=== PATIENT | female | born 1985 | race African-American/Black ===

== ENCOUNTER → 2020-05-11 | Outpatient (CLI) | payer MEDICAID | END | disposition home or self-care (01) | LOC: LAB 12:10 | PROVIDERS: ATTEND Obstetrics & Gynecology | DX: Z01.812 Encounter for preprocedural laboratory examination (principal); Z20.828 Contact with and (suspected) exposure to other viral communicable diseases | CPT/HCPCS: C9803; U0003 ==

== ENCOUNTER 2020-05-14 06:13 | Inpatient (IN) | payer MEDICAID ==
[~2020-05-14] VITALS: Ht 162.6 cm; Wt 95.3 kg
[2020-05-14] MEDS ORDERED: LACTATED RINGERS 1,000 ML IV SCH (06:59)
[2020-05-14] MEDS ORDERED: METHYLERGONOVINE MALEATE 0.2 MG/ML IM PRN (07:00)
[2020-05-14] MEDS ORDERED: NALOXONE HCL 0.4 MG/ML 1ML VIAL IM PRN (07:00)
[2020-05-14] MEDS ORDERED: MISOPROSTOL 100MCG TABLET VG SCH (07:00)
[2020-05-14] MEDS ORDERED: BUTORPHANOL TARTRATE 2 MG/ML VIAL IV PRN (07:00)
[2020-05-14] MEDS ORDERED: DEXT 5%/LR + PITOCIN 20UNITS/L 1,000 ML IV SCH ×2 (07:12→10:06)
[2020-05-14 07:44] LABS: CLARITY URINE CLEAR (CLEAR); COLOR URINE YELLOW (YELLOW); KETONES URINE NEGATIVE (NEGATIVE); LEUKOCYTE ESTERASE URINE NEGATIVE (NEGATIVE); NITRITE URINE NEGATIVE (NEGATIVE); OCCULT BLOOD URINE TRACE (NEGATIVE); PH URINE 6.5 (4.5-8.0); PROTEIN URINE NEGATIVE (NEGATIVE); SPECIFIC GRAVITY URINE 1.007 (1.005-1.030)
[2020-05-14 07:47] LABS: BASOPHILS % 0.4 % (0.0-2.0); EOSINOPHILS % 1.1 % (0.0-5.0); HEMATOCRIT. 29.3 % (36.0-48.0); HEMOGLOBIN. 9.5 g/dL (12.0-16.0); MEAN CORPUSCULAR HEMOGLOBIN 25.8 pg (28.0-32.0); MEAN CORPUSCULAR VOLUME 79.3 fL (81.0-99.0); MEAN PLATELET VOLUME 7.1 fl (7.4-10.4); MONOCYTES % 7.7 % (2.0-8.0); NEUTROPHILS % 66.8 % (40.0-76.0); PLATELET 339 x1000/uL (130-400); RED CELL DISTRIBUTION WIDTH 17.5 % (11.6-14.6)
[2020-05-14 07:54] LABS: PROTHROMBIN TIME 10.4 sec (9.6-11.0)
[2020-05-14 08:02] LABS: *AMPHETAMINES SCREEN URINE NEGATIVE (NEGATIVE)
[2020-05-14 08:03] LABS: *BARBITURATES SCREEN URINE NEGATIVE (NEGATIVE); *BENZODIAZEPINES SCREEN URINE NEGATIVE (NEGATIVE); *COCAINE SCREEN URINE NEGATIVE (NEGATIVE); METHADONE URINE SCREEN NEGATIVE (NEGATIVE); OPIATES URINE SCREEN NEGATIVE (NEGATIVE)
[2020-05-14 08:04] LABS: PHENCYCLIDINE URINE SCREEN NEGATIVE (NEGATIVE)
[2020-05-14 08:19] LABS: CANNABINOID URINE SCREEN PRESUMTIVE POSITIVE (NEGATIVE); HEPATITIS B SURFACE ANTIGEN NEGATIVE
[2020-05-14] MEDS ORDERED: LABETALOL 5MG/ML SYR 20 MG/4 ML SYRINGE IV PRN (09:30)
[2020-05-14] MEDS ORDERED: BUTORPHANOL TARTRATE 2 MG/ML VIAL IM PRN (09:30)
[2020-05-14] MEDS ORDERED: MEPERIDINE HCL/PF 25MG/ML CPJ IV PRN (09:30)
[2020-05-14] MEDS ORDERED: KETOROLAC 30MG/ML VIAL IV PRN (09:30)
[2020-05-14] MEDS ORDERED: ONDANSETRON HCL 4MG/2ML INJ IV PRN ×2 (09:30→10:15)
[2020-05-14] MEDS ORDERED: DEXT 5%/LACTATED RINGERS 1,000 ML IV SCH (10:06)
[2020-05-14] MEDS ORDERED: LANOLIN OINT 7GM TUBE TOP PRN (10:15)
[2020-05-14] MEDS ORDERED: RHO(D) IMMUNE GLOBULIN 300 MCG/SYR IM PRN (10:15)
[2020-05-14] MEDS ORDERED: HYDROCODONE/ACETAMINOPHEN 5/325MG TABLET PO PRN (10:15)
[2020-05-14] MEDS ORDERED: IBUPROFEN 400MG TABLET PO PRN (10:15)
[2020-05-14] MEDS: ACETAMINOPHEN WITH CODEINE 300/30MG TABLET PO PRN (11:02)
[2020-05-14] MEDS: HYDROMORPHONE HCL/PF 2MG/ML CPJ IV PRN ×2 (11:48→12:07)
[2020-05-14 13:00] VITALS: BP_SYST 101; BP_SYST 94; BP_DIAS 40; BP_DIAS 47
[2020-05-14 13:30] VITALS: BP 101/46
[2020-05-14 13:45] VITALS: BP 104/44
[2020-05-14] MEDS: DIPHENHYDRAMINE 50MG/ML VIAL IV PRN (18:01)
[2020-05-14 20:30] VITALS: BP 100/49
[2020-05-14] MEDS ORDERED: DIPHENHYDRAMINE 25MG CAPSULE PO PRN (21:00)
[2020-05-14] MEDS ORDERED: DOCUSATE SODIUM 100MG CAPSULE PO SCH (21:00)
[2020-05-15] VITALS: BP 110/74
[2020-05-15] MEDS: DIPHENHYDRAMINE 50MG/ML VIAL IV PRN (02:53)
[2020-05-15 04:00] VITALS: BP 98/48
[2020-05-15 07:28] LABS: BASOPHILS % 0.3 % (0.0-2.0); EOSINOPHILS % 1.7 % (0.0-5.0); HEMATOCRIT. 26.4 % (36.0-48.0); HEMOGLOBIN. 8.6 g/dL (12.0-16.0); LYMPHOCYTES % 19.2 % (20.0-50.0); MEAN CORPUSCULAR HEMOGLOBIN 25.8 pg (28.0-32.0); MEAN CORPUSCULAR VOLUME 79.6 fL (81.0-99.0); MEAN PLATELET VOLUME 6.7 fl (7.4-10.4); MONOCYTES % 8.5 % (2.0-8.0); NEUTROPHILS % 70.3 % (40.0-76.0); PLATELET 290 x1000/uL (130-400); RED BLOOD CELL COUNT 3.32 mill/uL (4.2-5.4); RED CELL DISTRIBUTION WIDTH 17.1 % (11.6-14.6)
[2020-05-15 08:00] VITALS: BP 100/54
[2020-05-15] MEDS: IBUPROFEN 800MG TABLET PO PRN ×3 (08:01→20:20)
[2020-05-15] MEDS: PRENATAL VIT/FE FUMARATE/FA TABLET PO SCH (08:01)
[2020-05-15 15:43] VITALS: BP 98/56
[2020-05-15 20:00] VITALS: BP 101/54
[2020-05-15] MEDS: ACETAMINOPHEN WITH CODEINE 300/30MG TABLET PO PRN (23:42)
[2020-05-16] VITALS: BP 100/52
[2020-05-16] MEDS: SIMETHICONE 80MG TABLET CHEW PO PRN ×2 (00:12→08:42)
[2020-05-16] MEDS: IBUPROFEN 800MG TABLET PO PRN ×2 (02:39→15:27)
[2020-05-16 04:00] VITALS: BP 104/56
[2020-05-16 07:42] VITALS: BP 118/53
[2020-05-16] MEDS: PRENATAL VIT/FE FUMARATE/FA TABLET PO SCH (08:42)
[2020-05-16] MEDS ORDERED: BISACODYL 10MG SUPP PR NR (10:30)
[2020-05-20 06:07] LABS: CANNABINOID CONFIRMATION URINE Positive (.)
== END 2020-05-16 18:20 | disposition home or self-care (01) | DRG 540 ==
LOC: 8 EST LDRP 06:13 → 8EST 12:48
PROVIDERS: ADMIT Obstetrics & Gynecology; ATTEND Obstetrics & Gynecology
PROC: 10D00Z1 Extraction of Products of Conception, Low, Open Approach (ICD-10-PCS; principal; 2020-05-14)
DX: O34.211 Maternal care for low transverse scar from previous cesarean delivery (principal); Z3A.40 40 weeks gestation of pregnancy; Z37.0 Single live birth; O99.03 Anemia complicating the puerperium; D64.9 Anemia, unspecified
CPT/HCPCS: 36415; 80305; 80349; 81003; 85025; 86592; 86703; 86762; 86850; 86900; 87340; 88307; J1170; J1200; J1885; J2590; J7121

== ENCOUNTER 2023-12-05 11:19 | Emergency (ER) | payer MEDICAID ==
[~2023-12-05] VITALS: Ht 163.8 cm; Wt 81.8 kg
[2023-12-05 11:42] VITALS: O2SAT 100
[2023-12-05] MEDS ORDERED: NAPR220C61 MT (12:44)
[2023-12-05] MEDS: ACETAMINOPHEN 325MG TABLET PO ONE (12:55)
[2023-12-05] MEDS: METOCLOPRAMIDE HCL 10MG TABLET PO ONE (12:55)
[2023-12-05 13:03] VITALS: BP 100/56; PULSE 68; RESP 18; TEMP 98
== END 2023-12-05 13:06 | disposition home or self-care (01) ==
LOC: ER 11:19
DX: R51.9 Headache, unspecified (principal); Z98.890 Other specified postprocedural states
CPT/HCPCS: 99283; J8597